=== PATIENT | male | born 1985 | race Caucasian/White ===

== ENCOUNTER 2020-08-31 12:26 | Outpatient (CLI) | payer OTHER, SELFPAY ==
[2020-08-31 13:35] LABS: Volume Semen 4.5 mL (2-5)
[2020-08-31 13:36] LABS: PH Semen 9.5 (7.0-8.0); Pathology Referral Yes; Red Blood Count Semen 0-4 /hpf; Sperm Vitality-% Live Sperm 0 %; Viscosity Semen High Viscosity
[2020-08-31 18:54] LABS: Side 1 0; Side 2 0
== END 2020-08-31 12:27 | disposition home or self-care (01) ==
PROVIDERS: PCP Family Medicine; Visit Provider Nurse Practitioner Women's Health
DX: N46.9 Male infertility, unspecified (principal)
CPT/HCPCS: 80500; 89320

== ENCOUNTER → 2022-11-08 14:07 | Outpatient (BNVA) | payer BC, SELFPAY | PROVIDERS: PCP Family Medicine; Visit Provider Family Medicine | DX: Z00.00 Encounter for general adult medical examination without abnormal findings (principal) | CPT/HCPCS: 80053; 80061; 83036; 85025 ==

== ENCOUNTER 2024-05-29 12:44 | Outpatient (CLI) | payer BC, SELFPAY ==
[2024-05-29 16:56] LABS: Viscosity Semen Normal
== END 2024-05-29 12:45 | disposition home or self-care (01) ==
LOC: LAB 12:48
PROVIDERS: PCP Registered Nurse; Visit Provider Nurse Practitioner Women's Health
DX: N46.9 Male infertility, unspecified (principal)
CPT/HCPCS: 89320

== ENCOUNTER 2025-02-17 16:42 | Outpatient (CLI) | payer BC, SELFPAY ==
--- NOTE | 2025-02-17 17:15 | USR_ITS ---
PROCEDURE INFORMATION: Exam: US Soft Tissue Head and Neck, Soft Tissue Exam date and time: 02/17/2025 4:54 PM Age: 39 years old Clinical indication: Dysphagia / difficulty swallowing; Additional info: R13.10 - dysphagia, unspecified TECHNIQUE: Imaging protocol: Real-time ultrasound scan of the head and neck with image documentation. Exam focused on the soft tissue in the region of clinical concern. COMPARISON: No relevant prior studies available. FINDINGS: Lymph nodes: No lymphadenopathy. Soft tissues: Unremarkable. No fluid collections. Homogeneous thyroid tissue. US/US soft tissue head neck [id number] IMPRESSION: Unremarkable soft tissues of the visualized head and neck. Homogeneous thyroid tissue.
== END 2025-02-17 16:43 | disposition home or self-care (01) ==
LOC: RAD 16:43
PROVIDERS: PCP Registered Nurse; Visit Provider Registered Nurse
DX: R13.10 Dysphagia, unspecified (principal); E07.89 Other specified disorders of thyroid
CPT/HCPCS: 76536

== ENCOUNTER 2025-03-18 10:28 | Outpatient (CLI) | payer BC, SELFPAY ==
--- NOTE | 2025-03-18 16:45 | FL_ITS ---
FL barium swallow modifd [id number] REASON FOR EXAM: Other dysphagia FLUOROSCOPY TIME: 1min [id number] # OF SPOT FILMS: None TECHNIQUE: Examination was supervised by the speech therapy department. Patient was examined in the sitting upright lateral projection. The swallowing of barium of varying consistencies was monitored fluoroscopically and video recorded. FINDINGS: No contrast penetration into the laryngeal vestibule or aspiration is identified. No significant cricopharyngeal impingement was noted. The barium tablet passed through the esophagus without impedance. IMPRESSION: A detailed report of the swallowing will be rendered by the speech therapy department. No laryngeal vestibule penetration or aspiration identified. No esophageal obstruction MTDD
== END 2025-03-18 10:29 | disposition home or self-care (01) ==
LOC: RAD 10:32
PROVIDERS: PCP Registered Nurse; Visit Provider Surgery
DX: R93.89 Abnormal findings on diagnostic imaging of other specified body structures (principal); R13.19 Other dysphagia
CPT/HCPCS: 74230; 92611